=== PATIENT | male | born 1980 | race Hispanic/Latino ===

== ENCOUNTER 2024-11-02 06:17 | Day surgery (SDC) | payer BC, SELFPAY ==
[2024-11-02 08:00] VITALS: BMI 30.3
[2024-11-02 08:10] VITALS: BP 120/76
[2024-11-02 08:24] VITALS: BMI 30.3
[2024-11-02] MEDS: TYLENOL 1000 MG PO (08:31)
[2024-11-02] MEDS: NORMOSOL-R/PLASMALYTE-A 1000 IV (08:32)
[2024-11-02 10:24] VITALS: BP 131/63
[2024-11-02 10:30] VITALS: BP 126/75
[2024-11-02 10:45] VITALS: BP 130/75
== END 2024-11-02 11:26 | disposition home or self-care (01) ==
LOC: SDS 06:17
PROVIDERS: ATTENDING PHYSICIAN Surgery
DX: K60.1 Chronic anal fissure (principal); K64.8 Other hemorrhoids
CPT/HCPCS: 46260; 46200; 88304

== ENCOUNTER 2025-07-24 00:01 | Emergency (ER) | payer BC, SELFPAY ==
[2025-07-24 00:06] VITALS: BP 158/88
[2025-07-24 00:49] LABS: Hematocrit 41.8 % (39.0-52.0); Hemoglobin 14.7 g/dL (13.0-18.0); Mean Corp Hgb Conc. 35.2 g/dL (33.0-37.0); Mean Corpuscular Volume 87.6 fL (80.0-94.0); Nucleated Red Blood Cells % 0 % (-); Platelet Count 315 10^3/uL (130-400); Red Cell Dist. Width 11.9 % (11.5-14.5)
[2025-07-24 01:01] LABS: ALT (SGPT) 26 U/L (0-50); AST (SGOT) 24 U/L (17-59); Albumin 4.3 g/dl (3.5-5.0); Alkaline Phosphatase 57 U/L (38-126); Blood Urea Nitrogen 24 mg/dl (9-20); Calcium 9.0 mg/dl (8.4-10.2); Carbon Dioxide 30 mmol/L (22-30); Chloride 99 mmol/L (98-107); Glucose 95 mg/dl (70-99); Potassium 3.8 mmol/L (3.5-5.1); Sodium 136 mmol/L (135-145); Total Protein 7.6 g/dl (6.3-8.2); eGFR > 60.00
[2025-07-24 02:17] LABS: Lipase 172 U/L (23-300)
[2025-07-24 03:40] VITALS: BP 147/83; BMI 29.9
--- NOTE | 2025-07-24 03:45 | EDRN ---
Pt says his daughter was diagnosed with flu on Thursday, 1 week ago, and the next day he developed symptoms. Pt started tamiflu on Thursday adn took his last dose. Last night around 2229, pt developed abdominal pain that has been constant
associated with nausea and 2 episodes of vomiting . Pt has had chills and a non productive cough. Pt denies fever, cp, sob, diarrhea/constipation, urinary symptoms. Pt did not take anything for pain. Pt asking for IVF, informed he needs to be
seen by an ED provider and order placed for that. Pt informed of lengthy wait time to evaluation. Pt declined need for emesis bag, positioned in bed for comfort and is warm enough.
[2025-07-24 05:59] VITALS: BP 116/69
--- NOTE | 2025-07-24 06:27 | ED.GENMED ---
History of Present Illness
General
Chief Complaint: Abdominal Pain
Source: patient and significant other
Exam Limitations: none
Time Seen by Provider: 07/24/25 06:16
Nursing documentation reviewed up to this point in time: agreed with
History of Present Illness
History of Present Illness:
Note:
CHIEF COMPLAINT(S)
Abdominal discomfort, nausea, and vomiting.
HISTORY OF PRESENT ILLNESS
The patient is a 44-year-old male presenting with abdominal discomfort that began last week following a bout of flu-like symptoms which started on Thursday. He reports an ill-defined, generalized discomfort in the abdominal region that is described as
uncomfortable rather than acutely painful. The patient has experienced nausea and vomited a couple of times, although he reports no current nausea or further vomiting. There is no recent diarrhea. The patient describes the discomfort as 'just
uncomfortable' without pointing to any specific location of pain. He rated discomfort on palpation as uncomfortable but not acutely painful, particularly around the mid-abdominal area. The patient denies any concurrent symptoms such as coughing.
PHYSICAL EXAM
General: Alert, no acute distress.
Skin: Warm, dry.
Head: Normocephalic, atraumatic.
Neck: Supple, trachea midline.
Eye, Ears, Nose, Mouth, and Throat: Oral mucosa moist.
Cardiovascular: Normal peripheral perfusion, No edema.
Respiratory: Respirations are non-labored.
Gastrointestinal: Abdomen nondistended, nonfocal, and nontender.
Back: Normal range of motion, Normal alignment.
Musculoskeletal: Normal range of motion, normal strength.
Neurological: Alert and oriented to person, place, time, and situation; No focal neurological deficit observed.
Psychiatric: Cooperative, appropriate mood & affect.
PLAN
Arrange for further observation and symptomatic treatment as necessary. Consider monitoring for flu-related complications or viral gastroenteritis. Due to the current non-specificity of symptoms, maintain a conservative approach unless symptoms
progress or new ones develop.
DIFFERENTIAL DIAGNOSIS
The Differential Diagnosis includes, in no particular order and is not limited to:
1. Viral gastroenteritis
2. Peptic ulcer disease
3. Gastroesophageal reflux disease
4. Acute gastritis
5. Food poisoning
6. Subclinical appendicitis
7. Diverticulitis
8. Biliary colic
9. Pancreatitis
10. Influenza-related abdominal symptoms
Disposition:
SUMMARY OF ENCOUNTER
The patient, a 44-year-old male, was seen in the emergency department for abdominal discomfort, nausea, and vomiting following a recent diagnosis of influenza. The patient presented with a generalized, ill-defined abdominal discomfort and previous
episodes of vomiting but reported feeling better after receiving IV fluids and ondansetron (Zofran). An examination of the abdomen was benign, and the patient showed improvement in symptoms, leading him to request discharge.
DISPOSITION
Discharge
ASSESSMENT
The patient likely has influenza-related abdominal symptoms, with other potential conditions such as viral gastroenteritis being considered. Appendicitis and diverticulitis have been ruled out due to the benign abdominal examination.
EMERGENCY TREATMENTS ADMINISTERED
The patient received IV fluids and ondansetron (Zofran) in the emergency department.
PLAN
The plan is to discharge the patient with advice for home care, monitoring for any progression or new symptoms, and continuing symptomatic treatment. Consider follow-up if symptoms persist or worsen.
MEDICATION RECONCILIATION
The patient was prescribed ondansetron (Zofran) for ongoing management of nausea.
MEDICAL DECISION MAKING
-Complexity of Data Reviewed: DDx list includes viral gastroenteritis, peptic ulcer disease, gastroesophageal reflux disease, acute gastritis, food poisoning, subclinical appendicitis, diverticulitis, biliary colic, pancreatitis, and
influenza-related abdominal symptoms.
-Data:
Category 1
No additional tests were reviewed or independently interpreted during this visit.
-Risk:
Consideration of Admission/Observation: Escalation of care including admission/observation was considered given the complexity and risk of the patients presenting complaint and exam findings. However, ultimately, I feel the patient is safe for
outpatient management with close follow-up. Reasoning: Work-up reassuring, does not reveal any acute life/organ-threatening processes, patients symptoms well-controlled upon reevaluation, reexamination is reassuring, vitals are stable, patient
agreeable with discharge, reliable for follow-up.
DIAGNOSIS
Influenza-related abdominal symptoms (ICD-10: J11.1)
Past History
Past History
ED Past Medical History: None
ED Past Surgical History: None
Social History
Tobacco: Non-smoker
Personal:
Living: with family
Phy Exam
Physical Exam
Physical Exam:
.
Sepsis
Sepsis Screening
Sepsis Assessment: Sepsis Ruled Out
Sepsis Screen
Sepsis Screen: Sepsis Ruled Out
Date: 07/24/25
Time: 09:08
Course
Orders/Labs/Results
Orders:
Orders
07/24/25 00:17
CMP [Comprehensive Metabolic Panel] Urgent
Complete Blood Count/With Diff Urgent
Lipase Urgent
Comment: ADD ON
07/24/25 01:57
Add On- LAB Urgent
Tests Added?: lipase
07/24/25 06:26
IV Insert/Care/Rem.- Treatment PRN
0.9% Sodium Chloride 1000 ml [Nss] 1,000 ml IV BOLUS
Ondansetron Injectable [Zofran] 4 mg IV NOW STA
Abnormal Lab Results
07/24/25
00:17
Abs Immat Gran (auto) 0.1 H 10^3/uL
(0-0.05)
Immature Gran % 0.9 H %
(0-0.5)
BUN 24 H mg/dl
(9-20)
07/24/25 00:17
07/24/25 00:17
Vital Signs
Initial and Last Documented VS:
Initial Vital Signs
Temp Pulse Resp BP Pulse Ox
97.6 F 72 22 158/88 100
07/24/25 00:06 07/24/25 00:06 07/24/25 00:06 07/24/25 00:06 07/24/25 00:06
Last Documented Vital Signs
Temp Pulse Resp BP Pulse Ox
97.9 F 63 14 116/69 98
07/24/25 03:40 07/24/25 05:59 07/24/25 05:59 07/24/25 05:59 07/24/25 06:27
*Pulse Oximetry
SaO2: 98
Oxygen Mode of Delivery: Room air
Patient hypoxic: no
*Critical Care Note
Total Time (30-74mins, 75-104mins- exclusive of procedures): Not Applicable
ED Attending Note
-
Portions of this chart may have been created with voice recognition software.� Occasional wrong word or��sound alike� substitutions may have occurred due to the inherent limitations of voice recognition software.
Discharge Plan
Departure
Patient Disposition: Home (Routine Discharge)
Date of Disposition: 07/24/25
Time of Disposition: 07:36
Patient with high blood pressure during this ER visit?: No
Condition: Good
Discharge Problem:
Nausea and vomiting
Instructions: Nausea and Vomiting, Adult (DC), Abdominal Pain
Prescriptions:
New
ondansetron 4 mg tablet,disintegrating
4 mg PO Q8H PRN (Reason: nausea and vomiting) 4 Days Qty: 7 0RF
No Action
multivitamin Tablet
1 tab PO DAILY
Claritin-D 24 Hour 10-240 mg Tablet Extended Release 24 Hr
1 tab PO DAILY
cholecalciferol (vitamin D3) [Vitamin D3] 25 mcg (1,000 unit) Capsule
25 mcg PO DAILY
Lactobacillus acidophilus [Probiotic] 10 billion cell Capsule
10,000 mmu cells PO DAILY
Joint THEMA 40-10-5-3.3 mg Tablet
1 tab PO DAILY
Gut Health
1 tab PO DAILY
Nutrilite
1 tab PO BID
Referrals:
Leandro Frances DO [Family Provider, Family Practice] - Call in 1-3 days for appt
Activity Restrictions/Additional Instructions:
Return for any concerns, or if symptoms persist.
Interventions
Interventions:
*General Assessment Last Done: 07/24/25 03:40
*Neglect/Abuse Screening Last Done: 07/24/25 00:06
*ED COVID-19 Vaccine History Last Done: 07/24/25 03:40
*ED Influenza Vaccine History Last Done: 07/24/25 03:40
[facility] Risk Assessment Tool Last Done: 07/24/25 03:40
*Risk Screen - Suicide (C-SSRS) Last Done: 07/24/25 00:06
*Nursing Disposition Last Done: 07/24/25 07:51
[facility]-Vrswcm-Menhfwggjq Assessment Last Done: 07/24/25 03:40
ED- Pulmonary Assessment Last Done: 07/24/25 03:40
Discharge Date and Time
Discharge Date/Time: 07/24/25 07:52
Print Language: SINHALA
[2025-07-24] MEDS: NSS 1000 IV (06:37)
[2025-07-24] MEDS: ZOFRAN 4 MG IV (06:38)
== END 2025-07-24 07:52 | disposition home or self-care (01) ==
LOC: EMR 00:01
PROVIDERS: Emergency Medicine; EMERGENCY PHYSICIAN Emergency Medicine; FAMILY PHYSICIAN Family Medicine
DX: R11.2 Nausea with vomiting, unspecified (principal); R10.9 Unspecified abdominal pain
CPT/HCPCS: 96374; 96361; 99284; 80053; 83690; 85025